=== PATIENT | female | born 1950 | race African-American/Black ===

== ENCOUNTER 2024-03-01 14:31 | Emergency (ER) | payer OTHER ==
[~2024-03-01] VITALS: Ht 165.1 cm; Wt 56.0 kg
[~2024-03-01 14:31] MED LIST: ATOR20TA PO; CIPR-263 MT; METF500T60 MT
[2024-03-01 14:47] VITALS: BP 113/59; PULSE 86; RESP 18; TEMP 98.5; O2SAT 98
== END 2024-03-01 21:21 | disposition home or self-care (01) ==
LOC: ER 14:31
DX: Z46.6 Encounter for fitting and adjustment of urinary device (principal); E11.9 Type 2 diabetes mellitus without complications
CPT/HCPCS: 99281